=== PATIENT | female | born 1965 | race Caucasian/White ===

== ENCOUNTER 2025-08-01 07:51 | Inpatient (IN) | payer OTHER, SELFPAY ==
[2025-07-30] VITALS (13 sets, daily range): BP systolic 98–156; BP diastolic 56–102; BMI 37.8; BMI 36.9
[2025-07-30 00:50] LABS: Hematocrit 42.5 % (37.0-47.0); Hemoglobin 14.9 g/dL (12.0-16.0); Mean Corp Hgb Conc. 35.1 g/dL (33.0-37.0); Mean Corpuscular Volume 96.2 fL (81.0-99.0); Nucleated Red Blood Cells % 0 %; Platelet Count 260 10^3/uL (130-400); Red Cell Dist. Width 13.2 % (11.5-14.5)
[2025-07-30 01:12] LABS: ALT (SGPT) 18 U/L (0-35); AST (SGOT) 28 U/L (14-36); Albumin 4.1 g/dl (3.5-5.0); Alkaline Phosphatase 63 U/L (38-126); Blood Urea Nitrogen 6 mg/dl (7-17); Calcium 8.8 mg/dl (8.4-10.2); Carbon Dioxide 21 mmol/L (22-30); Chloride 103 mmol/L (98-107); Estimated Creatinine Clearance 94 ml/min; Glucose 90 mg/dl (70-99); Potassium 4.3 mmol/L (3.5-5.1); Sodium 134 mmol/L (135-145); Total Protein 6.6 g/dl (6.3-8.2); eGFR > 60.00
[2025-07-30 01:24] LABS: Troponin I 0.037 ng/ml
--- NOTE | 2025-07-30 04:18 | ED.GENMED ---
History of Present Illness
General
Chief Complaint: Breathing Problem
Source: patient
Exam Limitations: none
Time Seen by Provider: 07/30/25 01:25
Nursing documentation reviewed up to this point in time: agreed with
History of Present Illness
History of Present Illness:
Note:
CHIEF COMPLAINT(S)
- Shortness of breath
HISTORY OF PRESENT ILLNESS
The patient is a 59-year-old female with a past medical history of COPD, meningioma with CHILD LIFE ASSISTANT shunt, GERD, depression, bipolar disorder who presents presenting with increasing shortness of breath over the past few weeks. She reports that she was
going to lie down this evening when she reports that she could not catch her breath and called EMS. She reports that her inhaler has not been helping. She has also had pain in her neck and swelling. She has had a lipoma in the past. She
additionally recalls experiencing a high fever of 102�F at home. The patient mentions coughing, including the production of phlegm, and reports a similar respiratory issue in the past necessitating oxygen therapy and treatment for pneumonia. She was
previously on oxygen for about a week due to similar symptoms. How she feels now she describes it as feeling similar to when she was hospitalized for bilateral pneumonia. The patient does not take any blood thinners. She has a history of a shunt
placement in 2006 for hydrocephalus and underwent surgery a week after the shunt insertion. She denies nausea, vomiting, diarrhea, constipation.
PAST MEDICAL AND SURGICAL HISTORY
- Shunt placement for hydrocephalus in 2006 followed by additional surgery
CHRONIC MEDICAL CONDITIONS SIGNIFICANTLY AFFECTING CARE
- History of pneumonia with oxygen therapy requirement
MEDICATIONS
- Inhalers as needed
REVIEW OF SYSTEMS
- Respiratory: Shortness of breath, wheezing as noted on auscultation
- Neurological: Headache
- General: Fever reaching 102�F at home
PHYSICAL EXAM
General: Alert, no acute distress.
Skin: Warm, dry.
Head: Normocephalic, atraumatic.
Neck: Supple, trachea midline.
Ear, Nose, Mouth, and Throat: Oral mucosa moist.
Cardiovascular: Normal peripheral perfusion, No edema. Regular rate and rhythm, no murmurs
Respiratory: Wheezing noted on auscultation, Respirations are non-labored.
Gastrointestinal: Abdomen nondistended.
Back: Normal range of motion, Normal alignment.
Musculoskeletal: Normal ROM, normal strength.
Neurological: Alert and oriented to person, place, time, and situation, No focal neurological deficit observed.
Psychiatric: Cooperative, appropriate mood & affect.
PLAN
- Obtain a CT scan to rule out pulmonary embolism
- Consider pneumonia in the differential and plan for appropriate antibiotic therapy
- Monitor troponin levels as they are slightly elevated
- CBC, CMP, ECG
DIFFERENTIAL DIAGNOSIS
The Differential Diagnosis includes, in no particular order and is not limited to:
1. Pneumonia
2. Pulmonary embolism
3. Heart failure
4. Myocardial ischemia
5. Chronic obstructive pulmonary disease exacerbation
6. Asthma exacerbation
7. Upper respiratory infection
8. Pleural effusion
9. Pericarditis
10. Acute bronchitis
UPDATE
Case signed out to Dr. Wong at [address] scan results
CHART REVIEW
[facility], no prior ER physician documentation to review
Reviewed [place] physician link patient has an MRI scheduled of her cervical spine that was ordered in April is pending authorization
MDM/DISPOSITION
59-year-old female with a past medical history of CHILD LIFE ASSISTANT shunt status post meningioma removal, GERD, COPD Daily smoker called EMS from home today with concerns of respiratory distress. She has been intermittently shortness of breath the past few days
and has increase sputum production. Inhalers are not helping. She had a fever of 102 at home. She reports that this feels similar to when she was hospitalized for bilateral pneumonia. She has no history of coronary artery disease or heart
failure. She is not complaining of chest pain today. On physical exam she is 97% on room air EMS did place her on O2 for comfort she does have scattered wheezing on exam but otherwise appears comfortable. Prior to my evaluation she got a troponin
drawn which was elevated at 0.037. We have nothing to compare this to. Because of this bump along with acute shortness of breath, she was sent for chest CT to rule out pulmonary embolism. Labs reviewed, no leukocytosis. Will treat with DuoNeb.
Phy Exam
Physical Exam
Physical Exam:
see hpi
Scores
Heart Failure Risk
Heart Failure Risk Score: Not Applicable
Course
Orders/Labs/Results
Orders:
Orders
07/30/25 00:33
Electrocardiogram (*1) Urgent
Reason for Study: Other
Other Reason for Exam: Respiratory Distress
EKG- Treatment ONCE
07/30/25 00:43
Complete Blood Count/With Diff Urgent
Comprehensive Metabolic Panel Urgent
Troponin I Urgent
07/30/25 01:44
CT Chest PE Study Urgent
Comment:
Reason For Exam: shortness of breath
07/30/25 04:12
Electrocardiogram (*1) Urgent
Reason for Study: Shortness of Breath
07/30/25 04:23
Ipratropium/Albuterol Sulfate [Duoneb] 3 ml INH R NOW STA
07/30/25 05:01
Troponin I Urgent
07/30/25 06:36
COVID-19 Antigen Stat
Source: Nasal Swab
Influenza A+B Rapid Molecular Stat
SUZIE Source: Nasal Swab
Specimen Description:
07/30/25 06:38
Admit/Transfer Patient As Directed
Co-Sign Provider:
Level of Care: Observation services
Assign to:: Telemetry
Physician / Group: Laura
Diagnosis: acute bronchitis
Reason for Telemetry: Chest Pain syndromes
Date to Stop Telemetry: 08/01/25
Time to Stop Telemetry: 11:00
07/30/25 06:39
Code Status As Directed
Resuscitation Status: Full Code
PRN Pain Medication Management As Directed
May give lesser potent ordered pain med per pt: Yes
preference::
Protocol:: Medication orders for pain may be administered in a
manner that supports deferring to patient preference
when the pt is:
- Requesting an ordered lesser potent pain medication.
Least to most potent pain medications are defined
as: acetaminophen < NSAID < tramadol < opioids
(morphine, oxycodone, hydromorphone).
- Requesting a lesser dose of the same medication IF
ORDERED.
- Requesting a less intrusive route of administration
if both routes are prescribed by the provider (PO <
IV).
07/30/25 06:43
Rapid Strep Group A Routine
SUZIE Source: Throat/Pharynx
Specimen Description:
08/01/25 11:00
DC Protocol for Telemetry ONCE
Abnormal Lab Results
07/30/25
00:43
MCH 33.7 H pg
(27.0-31.0)
Abs Immat Gran (auto) 0.1 H 10^3/uL
(0-0.05)
Immature Gran % 0.8 H %
(0-0.5)
Sodium 134 L mmol/L
(135-145)
Carbon Dioxide 21 L mmol/L
(22-30)
BUN 6 L mg/dl
(7-17)
Troponin I 0.037 H* ng/ml
07/30/25 00:43
07/30/25 00:43
Vital Signs
Initial and Last Documented VS:
Initial Vital Signs
Temp Pulse Resp BP Pulse Ox
98.7 F 90 16 143/66 96
07/30/25 00:27 07/30/25 00:27 07/30/25 00:27 07/30/25 00:27 07/30/25 00:27
Last Documented Vital Signs
Temp Pulse Resp BP Pulse Ox
98.7 F 90 17 143/66 95
07/30/25 00:27 07/30/25 00:33 07/30/25 00:33 07/30/25 00:27 07/30/25 04:22
*Pulse Oximetry
SaO2: 95
Nasal Cannula flow liters per minute: 4
Oxygen Mode of Delivery: Room air
Patient hypoxic: no
*Critical Care Note
Total Time (30-74mins, 75-104mins- exclusive of procedures): Not Applicable
ED Attending Note
-
Portions of this chart may have been created with voice recognition software.� Occasional wrong word or��sound alike� substitutions may have occurred due to the inherent limitations of voice recognition software.
Discharge Plan
Departure
Patient Disposition: Admit
Admit to: Med/Surg
Presentation/result/management discussed w/ accepting MD/DO: Hospitalist
Patient with high blood pressure during this ER visit?: Yes
Condition: Fair
Discharge Problem:
COPD exacerbation
Prescriptions:
No Action
citalopram 40 mg tablet
10 mg PO DAILY
citalopram 10 mg tablet
10 mg PO HS
gabapentin 400 mg capsule
800 mg PO TID
quetiapine 100 mg tablet
100 mg PO DAILY
pantoprazole 40 mg tablet,delayed release (DR/EC)
40 mg PO DAILY
amitriptyline 100 mg tablet
100 mg PO DAILY
aripiprazole 5 mg tablet
5 mg PO DAILY
quetiapine 50 mg tablet
50 mg PO HS
quetiapine 50 mg tablet
melatonin 5 mg tablet
10 mg PO HS
Referrals:
PRIVATE,PHYSICIAN [Family Provider, Internal Medicine]
Interventions
Interventions:
*Risk Screen - Suicide Last Done: 07/30/25 00:27
*General Assessment Last Done: 07/30/25 00:27
*Neglect/Abuse Screening Last Done: 07/30/25 00:27
*ED- Fall Risk Assessment Last Done: 07/30/25 00:27
*ED COVID-19 Vaccine History Last Done: 07/30/25 00:27
ED- Cardiac Assessment Last Done: 07/30/25 00:43
ED- Pulmonary Assessment Last Done: 07/30/25 00:43
Discharge Date and Time
Print Language: SYRIAN
[2025-07-30] MEDS: DUONEB 3 ML INH (05:03)
[2025-07-30 06:01] LABS: Troponin I 0.033 ng/ml
--- NOTE | 2025-07-30 06:03 | HPS.HSE ---
Family Physician
-
Family Physician: PHYSICIAN PRIVATE
Chief Complaint
-
Sore throat
History of Present Illness
This is a 59-year-old female with past medical history significant for tobacco dependence, COPD, depression/anxiety, history of brain meningioma status post FACILITY SERVICE MANAGER shunt placement who presents to the emergency department with complaints of breathing
difficulties.
She reports 3-week history of cough productive of yellow sputum, shortness of breath with mild dyspnea on exertion. She reports this was associated with some sore throat and increasing hoarseness in her voice. She denied having any chest pain or
palpitations. She denied any diaphoresis. Denies any orthopnea or PND. She denies any lower extremity swelling.
Patient denies postnasal drip rhinorrhea sinus congestion or headache. She reported that she had a fever at home 3 days ago up to 102 �F. She has not had any fever since then. She denies any rash. She reported that she has been using
decongestants at home without any improvement. She also has been using an inhaler (she only appears to have Symbicort) and she has not had much improvement.
In the emergency department she was afebrile, blood pressure was 140/60 with a pulse of 90 and she was satting 95% on room air. ECG shows a normal sinus rhythm at a rate of 91. Troponin was initially 0.037, repeat was 0.033. CBC unremarkable,
electrolytes BUN/creatinine normal.
CT of the chest no aortic dissection aneurysm or pulmonary embolism. There were patchy peripheral opacities which could be infection or atelectasis. The liver was enlarged and steatotic.
Medical History
Past Medical History
Past Medical History: Reports COPD, GERD and Other
Additional Past Medical History:
Meningioma
Past Surgical History: Reports Brain (FACILITY SERVICE MANAGER shunt placement)
Social History
Tobacco: Smoker
Alcohol: None
Drug: None
Living: Alone
Family History
Family History: Not pertinent
Allergies / Home Medications
Allergies reflects when Allergies were last updated in [facility] [facility].
Home Medications with original date entered in [facility] [facility]
Allergy/Medication List:
Allergies
Allergy/AdvReac Type Severity Reaction Status Date / Time
No Known Allergies Allergy Unverified 07/30/25 00:27
Home Medications
amitriptyline 100 mg tablet 100 mg PO DAILY 07/30/25
aripiprazole 5 mg tablet 5 mg PO DAILY 07/30/25
citalopram 10 mg tablet 10 mg PO HS 07/30/25
citalopram 40 mg tablet 10 mg PO DAILY 07/30/25
gabapentin 400 mg capsule 800 mg PO TID 07/30/25
melatonin 5 mg tablet 10 mg PO HS 07/30/25
pantoprazole 40 mg tablet,delayed release 40 mg PO DAILY 07/30/25
quetiapine 100 mg tablet 100 mg PO DAILY 07/30/25
quetiapine 50 mg tablet 50 mg PO HS 07/30/25
quetiapine 50 mg tablet mg 07/30/25
Review of Systems
-
Constitutional: Reports Fever
Respiratory: Reports Cough and Trouble Breathing
Cardiac: Denies Chest Pain
Abdomen/GI: Reports No Symptoms
: Reports No Symptoms
Musculoskeletal: Reports No Symptoms
Skin: Reports No Symptoms
Neurological: Reports No Symptoms
Endocrine: Reports No Symptoms
Hematologic/Lymphatic: Reports No Symptoms
Psych: Reports No Symptoms
Physical Exam
Vital Signs
Vital Signs
Temp Pulse Resp BP Pulse Ox
98.7 F 90 17 143/66 95
07/30/25 00:27 07/30/25 00:33 07/30/25 00:33 07/30/25 00:27 07/30/25 04:22
Physical Exam
General: Well Developed, Well Nourished and No Apparent Distress
HEENT: NormoCephalic, Moist mucous membranes and Atraumatic
Respiratory: Clear
Cardiac: S1/S2 and Regular Rhythm; No Murmur or Rub
GI: Soft, Non Tender, Non Distended and Normal Bowel Sounds; No Organomegaly
Rectal: Deferred by Provider
Musculoskeletal: No Clubbing, No Cyanosis and No Edema
Skin: No Rash
Neuro: Nonfocal/grossly intact
Laboratory Results
-
07/30/25 00:43
07/30/25 00:43
Laboratory Results
Total Bilirubin 0.4 mg/dl (0.2-1.3) 07/30/25 00:43
AST 28 U/L (14-36) 07/30/25 00:43
ALT 18 U/L (0-35) 07/30/25 00:43
Alkaline Phosphatase 63 U/L (38-126) 07/30/25 00:43
Troponin I 0.033 ng/ml 07/30/25 05:01
Data Reviewed
-
Diagnostic Radiology: Image Personally Visualized and interpreted
CT Scan: Report Reviewed by me
Medical Tests (Nuc Med, Echo, EKG etc): Image Personally Visualized and interpreted
Lab Data: Labs Reviewed by me
Old Records: Reviewed
Impression/Plan
-
IMPRESSION:
This is a 59-year-old with past medical history of meningioma status post FACILITY SERVICE MANAGER shunt, asthma/COPD, current tobacco user, depression/bipolar who presents to the emergency department with ongoing cough and shortness of breath productive of yellow
phlegm. Reported a fever of 11/28/2001 at home 3 days ago but no fever since then. She is not hypoxic. She is not currently wheezing and has no crackles on exam but this is status post nebulizer treatment. She has been having some sore throat and
hoarseness for the last [address] is negative for area of focal consolidation but cannot rule out peripheral pneumonia versus atelectasis. The troponin was initially borderline positive at 0.037, repeat was 0.033. She has no chest pain no chest
discomfort palpitations lightheadedness or dizziness. ECG is nonischemic. She complains of several weeks of ongoing intermittent numbness in the right hand that moves from the fingertips to the elbows and then dissipates. She has been told is
associated with cervical lesion that is pending evaluation after removal of her FACILITY SERVICE MANAGER shunt so that she can get an MRI
PLAN:
Bronchitis -suspect a viral bronchitis in the setting of hoarseness and some sore throat with 3 weeks of cough productive of yellow phlegm. 1 subjective fever 3 days ago measured at home at 102 but no fevers here and no leukocytosis. No focal
consolidation on CT.
-Admit to telemetry observation for COPD exacerbation/bronchitis
-A short prednisone taper at 40 mg daily to start
-DuoNebs every 6 hours standing and every 4 hours as needed
-Will start azithromycin 500 mg IV daily
-Symptomatic treatment with guaifenesin
-Topical lozenges for sore throat
-Check procalcitonin
Elevated troponin-patient mostly admitted I think for the bump in troponin to 0.037. Repeat was 0.033 and no ischemia on ECG. No prior history of CAD. No history of diabetes. She does have obesity and fatty liver on imaging. Suspect more likely
postviral myocarditis pericarditis versus acute coronary syndrome.
- telemetry
- repeat enzyme x 1, if trending down, stop
- echo
- Lipid panel, A1c
Right upper extremity numbness -intermittent numbness suggestive of radiculopathy. There is also for some mild weakness in that arm. This is unlikely related to a cardiac condition
- Follow-up with outpatient specialist
Psych
- Continue usual medications
DVT prophylaxis�Lovenox subcu
CODE STATUS�full code
[2025-07-30 07:04] LABS: COVID-19 Antigen Negative (Negative)
--- NOTE | 2025-07-30 09:04 | W.PN.HOSP.TC ---
Today's Communication/Plan
-
see plan
Assessment / Plan
Assessment / Plan
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
phlegm, isolated fever [address] CHEST
IMPRESSION:
1. No evidence of pulmonary embolism or thoracic aortic dissection.
2. Scattered foci of groundglass opacity, suggestive of pneumonia or subsegmental atelectasis.
3. Suggestion of diffuse fatty infiltration of the liver.
PLAN:
Community Acquired pneumonia, likely following viral infection
-covid and influenza negative
-Admit to telemetry observation for COPD exacerbation/bronchitis
-A short prednisone taper at 40 mg daily to start
-DuoNebs every 6 hours standing and every 4 hours as needed
-Cef/Doxy - ordered now
-Symptomatic treatment with guaifenesin
-Topical lozenges for sore throat
-Check procalcitonin
Non ischemic myocardial injury
-Troponin mildly elevated on admit, no chest pain
-repeat trending down
-no hx CAD
-TTE ordered
Right upper extremity numbness -intermittent numbness suggestive of radiculopathy. There is also for some mild weakness in that arm. This is unlikely related to a cardiac condition
- Follow-up with outpatient specialist
-PT
Psych
- Continue usual medications
DVT prophylaxis�Lovenox subcu
CODE STATUS�full code
Anticipated Discharge: 24 - 48 hours
Subjective/Interval History
-
Date of Service: July 30, 2025
patient states duonebs helped her feel better
she is not on oxygen at home
Objective Data
-
Labs:
Laboratory Results
07/30/25
00:43
WBC 8.5
Hgb 14.9
Hct 42.5
Plt Count 260
Sodium 134 L
Potassium 4.3
Chloride 103
Carbon Dioxide 21 L
BUN 6 L
Creatinine 0.9
Glucose 90
Calcium 8.8
Total Bilirubin 0.4
AST 28
ALT 18
Alkaline Phosphatase 63
Vital Signs:
Vital Signs
Temp Pulse Resp BP Pulse Ox
98.7 F 85 19 125/81 93
07/30/25 00:27 07/30/25 08:00 07/30/25 08:00 07/30/25 08:00 07/30/25 07:45
Review of Systems
-
History Source: Patient
All other systems: Reviewed and negative
Physical Exam
-
General: No Apparent Distress
HEENT: PERRLA
Respiratory: Wheezes (end expiratory ) and Rhonchi
Cardiac: Regular Rhythm and S1/S2
GI: Soft and Nontender
Musculoskeletal: No Edema
Skin: Warm and Dry; Negative Rash
Neuro: AO x 3
Psych: Calm
Data Reviewed
-
CT Scan: Report Reviewed by me
Labs: Labs Reviewed by me
--- NOTE | 2025-07-30 09:31 | CM ---
CM reviewed chart and met with pt bedside in ED. Pt lives alone in 1 story home, no MARTINA.
Independent in ADLs, personal care and ambulation at baseline. No DME. Does not drive, Boyfriend assists as needed.
Confirms prescription coverage.
Currently on 2L NC.
Hx VN, possibly [facility], no hx SNF.
PCP: Dr Choi
Pharmacy: [facility]
Anticipate discharge home, CM will continue to follow for any discharge planning needs.
--- NOTE | 2025-07-30 11:30 | PTCARENOTE ---
Received pt from ER via stretcher, accompanied by volunteer. Pt AAO x3, LEIGH; ambulatory to bed with minimal assistance; denies weakness/dizziness. VSS. PLaced on telemetry:NSR. Currently on nc 2 lpm- pulse ox 94%, pt with (+) LAYTON/tachypnea;
frequent harsh cough, voice hoarse. Abd obese, soft, to start 2 Gm Na diet. Pt DTV; states will void in BR. Oriented to 4east, currently resting in bed, will continue to monitor.
[2025-07-30 11:31] LABS: HDL Cholesterol 49 mg/dl; LDL Cholesterol, Calculated 169 mg/dl; Troponin I 0.031 ng/ml; Very Low Density Lipoprotein 30 mg/dl (0-30)
[2025-07-30 11:52] LABS: Glycohemoglobin (HgbA1c) 5.0 % (4.0-5.6)
[2025-07-30] MEDS: MUCINEX 600 MG PO ×2 (12:29→20:41)
[2025-07-30] MEDS: NEURONTIN 800 MG PO ×3 (12:30→21:56)
[2025-07-30] MEDS: STERILE WATER FOR INJECTION 10 ML IV (12:30)
[2025-07-30] MEDS: DELTASONE 40 MG PO (12:30)
[2025-07-30] MEDS: VIBRAMYCIN 100 MG PO ×2 (12:30→20:41)
[2025-07-30] MEDS: SEROQUEL 100 MG PO (12:30)
[2025-07-30] MEDS: PROTONIX 40 MG PO (12:30)
[2025-07-30] MEDS: FLUSH (NSS) 1 FLUSH IV (12:31)
[2025-07-30] MEDS: ROCEPHIN 1000 MG IV (12:31)
[2025-07-30] MEDS: ABILIFY 5 MG PO (12:32)
[2025-07-30] MEDS: ELAVIL 100 MG PO (12:32)
[2025-07-30] MEDS: STERILE WATER FOR INJECTION IV (12:32)
[2025-07-30] MEDS: CELEXA 10 MG PO ×2 (12:33→21:55)
--- NOTE | 2025-07-30 16:26 | PTCARENOTE ---
Pt AAO x3, LEIGH well, OOB to BR, jazmyn well, no c/o weakness/dizziness. Pt anxious/tremulous at times. VSS. Telemetry:NSR. Maintained on nc 2 lpm- pulse ox 94%, pt with (+) tachypnea/LAYTON with activity; frequent harsh cough, voice hoarse. Abd
obese, soft, jazmyn PO well. Voids in BR without difficulty. Resting comfortably at present. Will continue to monitor.
[2025-07-30] MEDS: LOVENOX 40 MG SC (17:50)
[2025-07-30] MEDS: SEROQUEL 50 MG PO (21:56)
[2025-07-30] MEDS: MELATONIN 10 MG PO (21:56)
[2025-07-31 03:18] VITALS: BP 120/71
[2025-07-31 07:59] LABS: Hematocrit 43.3 % (37.0-47.0); Hemoglobin 14.6 g/dL (12.0-16.0); Mean Corp Hgb Conc. 33.7 g/dL (33.0-37.0); Mean Corpuscular Volume 98.6 fL (81.0-99.0); Platelet Count 271 10^3/uL (130-400); Red Cell Dist. Width 13.4 % (11.5-14.5)
[2025-07-31 08:27] VITALS: BP 120/83
[2025-07-31 08:56] LABS: Blood Urea Nitrogen 10 mg/dl (7-17); Calcium 9.0 mg/dl (8.4-10.2); Carbon Dioxide 30 mmol/L (22-30); Chloride 103 mmol/L (98-107); Estimated Creatinine Clearance 105 ml/min; Glucose 86 mg/dl (70-99); Potassium 4.5 mmol/L (3.5-5.1); Sodium 134 mmol/L (135-145); eGFR > 60.00
[2025-07-31] MEDS: PROTONIX 40 MG PO (09:14)
[2025-07-31] MEDS: NEURONTIN 800 MG PO ×3 (09:14→21:07)
[2025-07-31] MEDS: CELEXA 10 MG PO ×2 (09:14→21:07)
[2025-07-31] MEDS: ABILIFY 5 MG PO (09:14)
[2025-07-31] MEDS: MUCINEX 600 MG PO ×2 (09:15→21:07)
[2025-07-31] MEDS: ELAVIL 100 MG PO (09:15)
[2025-07-31] MEDS: DELTASONE 40 MG PO (09:15)
[2025-07-31] MEDS: SEROQUEL 100 MG PO (09:15)
[2025-07-31] MEDS: STERILE WATER FOR INJECTION 10 ML IV (09:15)
[2025-07-31] MEDS: VIBRAMYCIN 100 MG PO ×2 (09:15→21:07)
[2025-07-31] MEDS: ROCEPHIN 1000 MG IV (09:15)
[2025-07-31 11:31] VITALS: BP 101/67
--- NOTE | 2025-07-31 11:33 | W.PN.HOSP.TC ---
Today's Communication/Plan
-
wean O2 today
antibiotics, steroids, nebs
anticipate DC tomorrow
Assessment / Plan
Assessment / Plan
This is a 59-year-old with past medical history of meningioma status post [employer] shunt, asthma/COPD, current tobacco user, depression/bipolar who presents to the emergency department with ongoing cough and shortness of breath productive of yellow
phlegm, isolated fever [address] CHEST
IMPRESSION:
1. No evidence of pulmonary embolism or thoracic aortic dissection.
2. Scattered foci of groundglass opacity, suggestive of pneumonia or subsegmental atelectasis.
3. Suggestion of diffuse fatty infiltration of the liver.
TTE
SUMMARY
1. Left ventricular ejection fraction is normal with an ejection fraction of 64 % by Garcia's biplane method of discs.
2. No regional wall motion abnormalities.
PLAN:
Community Acquired pneumonia, likely following viral infection
-covid and influenza negative
-admitted to telemetry
-prednisone 40mg PO QD (day 2)
-DuoNebs every 6 hours standing and every 4 hours as needed
-Cef/Doxy - (day 2)
-Mucinex, Acapella
-Topical lozenges for sore throat
Non ischemic myocardial injury
-Troponin mildly elevated on admit, no chest pain
-repeat trending down
-no hx CAD
-TTE ordered - no WMA
Right upper extremity numbness -intermittent numbness suggestive of radiculopathy. There is also for some mild weakness in that arm. This is unlikely related to a cardiac condition
- Follow-up with outpatient specialist
-PT
Psych
- Continue usual medications
DVT prophylaxis�Lovenox subcu
CODE STATUS�full code
Anticipated Discharge: 24 - 48 hours
Subjective/Interval History
-
Date of Service: July 31, 2025
states she is feeling better today
still has a lot of mucus
Objective Data
-
Labs:
Laboratory Results
07/31/25
06:20
WBC 6.9
Hgb 14.6
Hct 43.3
Plt Count 271
Sodium 134 L
Potassium 4.5
Chloride 103
Carbon Dioxide 30
BUN 10
Creatinine 0.8
Glucose 86
Calcium 9.0
Vital Signs:
Vital Signs
Temp Pulse Resp BP Pulse Ox
98.4 F 86 20 101/67 96
07/31/25 11:31 07/31/25 11:31 07/31/25 11:31 07/31/25 11:31 07/31/25 11:31
I&O
07/30/25 07/31/25 08/01/25
06:59 06:59 06:59
Intake Total 1200 / 1200
Balance 1200 / 1200
Review of Systems
-
History Source: Patient
All other systems: Reviewed and negative
Physical Exam
-
General: No Apparent Distress
HEENT: PERRLA
Respiratory: Rhonchi; Negative Wheezes
Cardiac: Regular Rhythm and S1/S2
GI: Soft and Nontender
Musculoskeletal: No Edema
Skin: Warm and Dry; Negative Rash
Neuro: AO x 3
Psych: Calm
Data Reviewed
-
Diagnostic Radiology: Report Reviewed by me
Labs: Labs Reviewed by me
--- NOTE | 2025-07-31 12:14 | CM ---
Patient is for possible discharge tomorrow per patient's physician, patient is currently on 2 liters of oxygen, plan to wean.
Plan; Home when stable, need for follow for any oxygen needs at discharge.
[2025-07-31 16:07] VITALS: BP 122/67
[2025-07-31] MEDS: LOVENOX 40 MG SC (17:29)
[2025-07-31 19:49] VITALS: BP 104/76
[2025-07-31] MEDS: SEROQUEL 50 MG PO (21:07)
[2025-07-31] MEDS: MELATONIN 10 MG PO (21:07)
[2025-07-31 23:18] VITALS: BP 110/70
[2025-08-01 03:08] VITALS: BP 145/90
[2025-08-01 07:00] VITALS: BP 129/82
[2025-08-01] MEDS: VIBRAMYCIN 100 MG PO (08:25)
[2025-08-01] MEDS: PROTONIX 40 MG PO (08:25)
[2025-08-01] MEDS: SEROQUEL 100 MG PO (08:25)
[2025-08-01] MEDS: NEURONTIN 800 MG PO (08:25)
[2025-08-01] MEDS: ELAVIL 100 MG PO (08:25)
[2025-08-01] MEDS: ABILIFY 5 MG PO (08:25)
[2025-08-01] MEDS: DELTASONE 40 MG PO (08:25)
[2025-08-01] MEDS: MUCINEX 600 MG PO (08:25)
[2025-08-01] MEDS: CELEXA 10 MG PO (08:25)
[2025-08-01] MEDS: STERILE WATER FOR INJECTION 10 ML IV (10:13)
[2025-08-01] MEDS: ROCEPHIN 1000 MG IV (10:13)
--- NOTE | 2025-08-01 10:50 | W.PN.HOSP.TC ---
Today's Communication/Plan
-
OK for DC today
Assessment / Plan
Assessment / Plan
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
phlegm, isolated fever [address] CHEST
IMPRESSION:
1. No evidence of pulmonary embolism or thoracic aortic dissection.
2. Scattered foci of groundglass opacity, suggestive of pneumonia or subsegmental atelectasis.
3. Suggestion of diffuse fatty infiltration of the liver.
TTE
SUMMARY
1. Left ventricular ejection fraction is normal with an ejection fraction of 64 % by Garcia's biplane method of discs.
2. No regional wall motion abnormalities.
PLAN:
Community Acquired pneumonia, likely following viral infection
-covid and influenza negative
-admitted to telemetry
-prednisone 40mg PO QD (day 3)
-DuoNebs every 6 hours standing and every 4 hours as needed
-Cef/Doxy - (day 3)
-Mucinex, Acapella
-Topical lozenges for sore throat
-DC to complete 5 day prednisone and antibiotic course
Non ischemic myocardial injury
-Troponin mildly elevated on admit, no chest pain
-repeat trending down
-no hx CAD
-TTE ordered - no WMA
Right upper extremity numbness -intermittent numbness suggestive of radiculopathy. There is also for some mild weakness in that arm. This is unlikely related to a cardiac condition
- Follow-up with outpatient specialist
-PT
Psych
- Continue usual medications
DVT prophylaxis�Lovenox subcu
CODE STATUS�full code
Anticipated Discharge: Today
Subjective/Interval History
-
Date of Service: August 01, 2025
she is feeling well and hopeful to go home today
Objective Data
-
Vital Signs:
Vital Signs
Temp Pulse Resp BP Pulse Ox
98.2 F 74 16 129/82 93
08/01/25 07:00 08/01/25 07:00 08/01/25 07:00 08/01/25 07:00 08/01/25 07:59
I&O
07/31/25 08/01/25 08/02/25
06:59 06:59 06:59
Intake Total 1200 / 1200 480 / 480
Balance 1200 / 1200 480 / 480
Review of Systems
-
History Source: Patient
All other systems: Reviewed and negative
Physical Exam
-
General: No Apparent Distress
HEENT: PERRLA
Respiratory: Rhonchi; Negative Wheezes
Cardiac: Regular Rhythm and S1/S2
GI: Soft and Nontender
Musculoskeletal: No Edema
Skin: Warm and Dry; Negative Rash
Neuro: AO x 3
Psych: Calm
Data Reviewed
-
Diagnostic Radiology: Report Reviewed by me
Labs: Labs Reviewed by me
--- NOTE | 2025-08-01 10:57 | W.DS.TRANS ---
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
-
Discharge Instructions:
Discharge Diagnosis/Procedures community acquired pneumonia, COPD Exacerbation
Diet Regular
Activity As tolerated
Driving Restrictions As prior to admission
Bathing Restrictions None
Instructions:
Stand-Alone Forms:
Changes to Home Medications: Yes
Discharge Medications:
DC Medications w/original date entered in [facility]
amitriptyline 100 mg tablet 100 mg PO DAILY Mental Health/Anxiety 07/30/25
aripiprazole 5 mg tablet 5 mg PO DAILY Mental Health/Anxiety 07/30/25
citalopram 10 mg tablet 10 mg PO DAILY Mental Health/Anxiety 07/30/25
citalopram 40 mg tablet 10 mg PO HS Mental Health/Anxiety 07/30/25
gabapentin 400 mg capsule 800 mg PO TID Neurological Condition 07/30/25
melatonin 5 mg tablet 10 mg PO HS Mental Health/Anxiety 07/30/25
pantoprazole 40 mg tablet,delayed release 40 mg PO DAILY Gastrointestinal Issue 07/30/25
quetiapine 100 mg tablet 100 mg PO HS Mental Health/Anxiety 07/30/25
quetiapine 50 mg tablet 50 mg PO DAILY Mental Health/Anxiety 07/30/25
albuterol sulfate 90 mcg/actuation aerosol inhaler (Ventolin HFA) 2 puff inhalation Q6H PRN shortness of breath or wheezing #8.5 grams 08/01/25
cefdinir 300 mg capsule 300 mg PO Q12 #4 caps 08/01/25
doxycycline hyclate 100 mg capsule 100 mg PO Q12 #5 caps 08/01/25
guaifenesin 600 mg tablet, extended release 12 hr 600 mg PO Q12 #14 tabs 08/01/25
prednisone 20 mg tablet 40 mg (2 x 20 mg) PO DAILY #4 tabs 08/01/25
Home Medication Changes
Stop Jardiance, You are continued on Farxiga. You should only be taking one of these medications.
If you have another urinary tract infection, you will need to talk to your outpatient providers about coming off of this medication (as can increase risk of UTI).
You completed Keflex course in the hospital.
Pending Results: No
--- NOTE | 2025-08-01 11:34 | CM ---
MD entered order for discharge
Home oxygen test done Pt does not qualify for home oxygen.
Pox 94% room air.
Spoke with patient informed her she was inpatient.
Offered VN she declined need.
She said Gautam her ex will drive her home.
PLAN Home no needs
--- NOTE | 2025-08-01 13:26 | W.DCSUMMARY ---
Discharge Summary
Discharge Data
Date of Admission: 08/01/25
Date of Discharge: 08/01/25
-
Pending Results: No
Hospital Course
Discharging Physician : Dr. Naomi Cabrera
Disposition : Home
Principal Discharge diagnosis : Community Acquired Pneumonia, COPD Exacerbation
Hospital Course :
Ms. 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
yellow phlegm, isolated fever 3 days ago.
In the emergency department she was afebrile, blood pressure was 140/60 with a pulse of 90 and she was satting 95% on room air. She was wheezing on exam. ECG shows a normal sinus rhythm at a rate of 91. Troponin was initially 0.037, repeat was
0.033. CBC unremarkable, electrolytes BUN/creatinine normal. CT Chest without PE, evidence of pneumonia.
Patient was admitted for treatment of CAP and COPD Exacerbation. She received Ceftriaxone/Doxy in the hospital and discharged with oral antibiotics to complete 5 day course. She was started on Prednisone 40mg PO QD to complete a 5 day course. She
takes Symbicort at home and albuterol inhaler refilled. She is referred to Pulmonary as outpatient and will follow up with her PCP.
Patient became hypoxic overnight of admission requiring supplemental O2. She was weaned off of oxygen prior to discharge.
Time spent on discharge was 35 minutes.
Important imaging findings :
CT CHEST
IMPRESSION:
1. No evidence of pulmonary embolism or thoracic aortic dissection.
2. Scattered foci of groundglass opacity, suggestive of pneumonia or subsegmental atelectasis.
3. Suggestion of diffuse fatty infiltration of the liver.
Procedure findings :
Discharge Plan
-
Patient Disposition: Home (Routine Discharge)
Discharge Diagnosis/Procedures: community acquired pneumonia, COPD Exacerbation
Diet: Regular
Activity: As tolerated
Driving Restrictions: As prior to admission
Bathing Restrictions: None
Referrals:
Nic Metcalf MD [Active, Pulmonary Medicine] - in four to six weeks
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
PRIVATE,PHYSICIAN [Family Provider, Internal Medicine] - in less than 1 week
Additional Discharge Medication Instructions: You have 2 1/2 more days of Doxycycline (next dose this evening)
You have 2 more days of Cefdinir (next dose tomorrow morning)
You have 2 more days of Prednisone (next dose tomorrow morning)
Continue Symbicort
You are prescribed Albuterol as needed
Prescriptions:
New
prednisone 20 mg Tablet
40 mg PO DAILY Qty: 4 0RF
guaifenesin 600 mg Tablet Extended Release 12hr
600 mg PO Q12 Qty: 14 0RF
doxycycline hyclate 100 mg Capsule
100 mg PO Q12 Qty: 5 0RF
cefdinir 300 mg Capsule
300 mg PO Q12 Qty: 4 0RF
albuterol sulfate [Ventolin HFA] 90 mcg/actuation HFA aerosol inhaler
2 puff inhalation Q6H PRN (Reason: shortness of breath or wheezing) Qty: 8.5 0RF
Continued
citalopram 40 mg tablet
10 mg PO HS
citalopram 10 mg tablet
10 mg PO DAILY
gabapentin 400 mg capsule
800 mg PO TID
quetiapine 100 mg tablet
100 mg PO HS
pantoprazole 40 mg tablet,delayed release (DR/EC)
40 mg PO DAILY
amitriptyline 100 mg tablet
100 mg PO DAILY
aripiprazole 5 mg tablet
5 mg PO DAILY
quetiapine 50 mg tablet
50 mg PO DAILY
melatonin 5 mg tablet
10 mg PO HS
Discharge Orders:
Discharge Patient (As Directed); Ordered 08/01/25
Ordered By: Naomi Cabrera
Discharge Date and Time
Print Language: LITHUANIAN
== END 2025-08-01 13:42 | disposition home or self-care (01) | DRG 190 ==
LOC: 4 EAST ACU 07:51
PROVIDERS: Physician Assistant; ADMITTING PHYSICIAN Internal Medicine; ATTENDING PHYSICIAN Student in an Organized Health Care Education/Training Program; EMERGENCY PHYSICIAN Student in an Organized Health Care Education/Training Program
DX: J44.1 Chronic obstructive pulmonary disease with (acute) exacerbation (principal); J18.9 Pneumonia, unspecified organism; I5A Non-ischemic myocardial injury (non-traumatic); J44.0 Chronic obstructive pulmonary disease with (acute) lower respiratory infection; F17.200 Nicotine dependence, unspecified, uncomplicated; F41.9 Anxiety disorder, unspecified; F32.A Depression, unspecified; J20.9 Acute bronchitis, unspecified; R79.89 Other specified abnormal findings of blood chemistry; R09.02 Hypoxemia; K76.0 Fatty (change of) liver, not elsewhere classified; K21.9 Gastro-esophageal reflux disease without esophagitis; E66.9 Obesity, unspecified; Z11.52 Encounter for screening for COVID-19; Z68.36 Body mass index [BMI] 36.0-36.9, adult; Z98.2 Presence of cerebrospinal fluid drainage device; Z79.899 Other long term (current) drug therapy
CPT/HCPCS: 71275; 80048; 80053; 80061; 83036; 84484; 85025; 85027; 87070; 87502; 87811; 87880; 93005; 93306; 94640; 99285; 99406; Q9967